=== PATIENT | male | born 1935 | race Caucasian/White ===

== ENCOUNTER 2018-02-19 08:42 | Emergency (ER) | payer MEDICARE, BC ==
--- NOTE | 2018-02-19 10:03 | EDM.PDOC ---
ED HPI GENERAL MEDICAL PROBLEM - General Chief Complaint: Skin Complaint Stated Complaint: LEFT ANKLE DISCOLORATION/SWELLING Time Seen by Provider: 02/19/18 09:45 Source of Information: Reports: Patient History Limitations: Reports: No Limitations - History of Present Illness INITIAL COMMENTS - FREE TEXT/NARRATIVE: 82-year-old male with diabetes has been doing a lot of traveling lately noticed an erythematous slightly warm and tender area on the anterior aspect of his left lower leg over the last 24 hours. No fevers or chills, no nausea or vomiting, no systemic symptoms. Onset: Unknown/Unsure Location: Reports: Lower Extremity, Left Severity: Mild Associated Symptoms: Reports: No Other Symptoms - Related Data Home Meds: Home Meds Allopurinol [Zyloprim] 100 mg PO DAILY 02/19/18 [History] Glimepiride 8 mg PO DAILY 02/19/18 [History] Linagliptin [Tradjenta] 5 mg PO DAILY 02/19/18 [History] Lisinopril 10 mg PO DAILY 02/19/18 [History] Pravastatin [Pravachol] 40 mg PO BEDTIME 02/19/18 [History] Rivaroxaban [Xarelto] 20 mg PO DAILY 02/19/18 [History] Past Medical History HEENT History: Reports: Cataract Cardiovascular History: Reports: High Cholesterol Endocrine/Metabolic History: Reports: Diabetes, Type II - Past Surgical History HEENT Surgical History: Reports: Cataract Surgery GI Surgical History: Reports: Hernia, Abdominal Male Surgical History: Reports: Nephrectomy Musculoskeletal Surgical History: Reports: Knee Replacement Other Musculoskeletal Surgeries/Procedures:: Both knees Social & Family History - Tobacco Use Smoking Status *Q: Never Smoker - Caffeine Use Caffeine Use: Reports: Soda - Recreational Drug Use Recreational Drug Use: No ED ROS GENERAL - Review of Systems Review Of Systems: See Below Constitutional: Denies: Fever, Chills, Malaise Respiratory: Denies: Shortness of Breath Cardiovascular: Denies: Chest Pain GI/Abdominal: Denies: Abdominal Pain, Nausea, Vomiting Skin: Reports: Erythema Neurological: Denies: Headache ED EXAM, SKIN/RASH Exam: See Below Exam Limited By: No Limitations General Appearance: Alert, No Apparent Distress Respiratory/Chest: No Respiratory Distress Extremities: Other (Patient has a 8 x 6 cm reddened area on the anterior aspect of the left lower leg above the ankle which is somewhat tender to palpation and warm. No fluctuance or excoriations.) Course - Vital Signs Last Recorded V/S: Last Vital Signs Temp 98.1 F 02/19/18 09:27 Pulse 83 02/19/18 09:27 Resp 16 02/19/18 09:27 BP 171/97 H 02/19/18 09:27 Pulse Ox 97 02/19/18 09:27 - Re-Assessments/Exams Free Text/Narrative Re-Assessment/Exam: 02/19/18 10:02 This patient has an area of inflammation on the left lower extremity which could be cellulitis so will be treated with cephalexin 3 times daily. He is to return in the next 48-72 hours if not improving satisfactorily. Departure - Departure Time of Disposition: 10:08 Disposition: Home, Self-Care 01 Condition: Good Clinical Impression: Cellulitis - Discharge Information Instructions: Cellulitis, Adult Referrals: PCP,None [Primary Care Provider] - Forms: ED Department Discharge Care Plan Goals: Take antibiotic 3 times a day as directed, continue to stay active as tolerated. Consider rechecking in 3-4 days if not improving satisfactorily or return sooner if worsening despite treatment.
== END 2018-02-19 10:16 | disposition home or self-care (01) ==
LOC: JP.ED 08:42
DX: L03.116 Cellulitis of left lower limb (principal); E11.9 Type 2 diabetes mellitus without complications; I10 Essential (primary) hypertension; Z79.899 Other long term (current) drug therapy
CPT/HCPCS: 99283